=== PATIENT | female | born 1945 | race Caucasian/White ===

== ENCOUNTER 2024-10-04 09:38 | Inpatient (IN) | payer MEDICARE, OTHER ==
[~2024-10-04] VITALS: Ht 162.6 cm; Wt 58.5 kg
[2024-10-04] MEDS: IV NORMAL SALINE 500 ML BAG IV ONE (10:30)
[2024-10-04] MEDS ORDERED: ERGO500040 PO (10:57)
[2024-10-04] MEDS ORDERED: GEMTESA PO (10:57)
[2024-10-04] MEDS ORDERED: ROSU40TA PO (10:57)
[2024-10-04] MEDS ORDERED: DULA1.5P SQ (10:57)
[2024-10-04] MEDS ORDERED: SERT-440 PO (10:57)
[2024-10-04] MEDS ORDERED: L. A1TAB10 PO (10:57)
[2024-10-04] MEDS ORDERED: GLIP10TA11 PO (10:57)
[2024-10-04] MEDS ORDERED: QUET25TA PO (10:57)
[2024-10-04] MEDS ORDERED: CLOP75TA33 PO (10:57)
[2024-10-04 10:59] LABS: BASOPHILS % (AUTO) 0.2 % (0.0-2.0); EOSINOPHILS # (AUTO) 0.1 K/uL (0.0-0.7); EOSINOPHILS % (AUTO) 0.3 % (0.0-7.0); HEMATOCRIT 36.1 % (31.2-41.9); HEMOGLOBIN 12.2 g/dL (10.9-14.3); LYMPHOCYTES # (AUTO) 17.8 K/uL (0.8-4.8); LYMPHOCYTES % (AUTO) 76.7 % (20.5-51.5); MEAN CORPUSCULAR HEMOGLOBIN 29.2 uug (24.7-32.8); MEAN CORPUSCULAR HGB CONC 34 g/dL (32.3-35.6); MEAN CORPUSCULAR VOLUME 86.3 fL (75.5-95.3); MONOCYTES # (AUTO) 0.6 K/uL (0.1-1.30); MONOCYTES % (AUTO) 2.4 % (0.0-11.0); NEUTROPHILS # (AUTO) 4.7 K/uL (1.8-8.9); NEUTROPHILS % (AUTO) 20.4 % (38.5-71.5); PLATELET COUNT (AUTO) 180 K/uL (179-408); RED BLOOD CELL COUNT(AUTO) 4.19 MIL/uL (3.63-4.92); WHITE BLOOD COUNT (AUTO) 23.2 K/uL (3.8-11.8)
[2024-10-04 11:04] LABS: DIFFERENTIAL COMMENT 1
[2024-10-04 11:11] LABS: CALCIUM 9.1 mg/dL (8.5-10.1); CARBON DIOXIDE 23 mmol/L (21-32); CHLORIDE 108 mmol/L (98-107); CREATININE 0.5 mg/dL (0.6-1.3); GLUCOSE 112 mg/dL (74-106); POTASSIUM 3.7 mmol/L (3.5-5.1); SODIUM SERUM 142 mmol/L (136-145); UREA NITROGEN, BLOOD 14 mg/dL (7-18)
[2024-10-04 11:25] LABS: ALBUMIN 3.7 g/dL (3.4-5.0); BILIRUBIN,DIRECT 0.2 mg/dL (0.0-0.2); BILIRUBIN,TOTAL 0.4 mg/dL (0.2-1.0); TOTAL PROTEIN, SERUM 6.7 g/dL (6.4-8.2)
[2024-10-04] MEDS ORDERED: CEFTRIAXONE 1 G in IV DEXTROSE 5% 50 ML IV ONE (11:30)
[2024-10-04] MEDS ORDERED: SWABABLE VALVE TRANSFER SET EA MC ONE (12:38)
[2024-10-04] MEDS ORDERED: IV NORMAL SALINE 250 ML IV ONE (12:38)
[2024-10-04] MEDS ORDERED: IOHEXOL 350 100 ML INFUS..BTL ONE (12:38)
[2024-10-04 13:08] LABS: LYMPHOCYTES % (MANUAL) 40 % (20-40); MONOCYTES % (MANUAL) 2 % (2-10); NEUTROPHILS % (MANUAL) 22 % (42-75)
[2024-10-04 13:09] LABS: REACTIVE LYMPHOCYTES 36 % (0-0)
[2024-10-04 13:10] LABS: PLATELET ESTIMATE ADEQUATE
[2024-10-04] MEDS ORDERED: ASPIRIN 325 MG TABLET ONE (14:27)
[2024-10-04] MEDS: ASPIRIN 325 MG TABLET PO ONE (14:31)
[2024-10-04] MEDS ORDERED: ONDANSETRON 4 MG/2 ML VIAL IV PRN (17:00)
[2024-10-04] MEDS ORDERED: ACETAMINOPHEN 325 MG TABLET PO PRN (17:00)
[2024-10-04] MEDS ORDERED: DEXTROSE 50% 50 ML DISP.SYRIN IV PRN (17:00)
[2024-10-04] MEDS ORDERED: MAGNESIUM HYDROXIDE 30 ML LIQUID UDC PO PRN (17:00)
[2024-10-04 17:02] VITALS: BP 160/69; TEMP 97.5; O2SAT 98
[2024-10-04] MEDS: glipiZIDE 10 MG TABLET PO SCH (17:20)
[2024-10-04] MEDS ORDERED: Medication Not On Formulary EA (Rosuvastatin Calcium (Crestor) 40 MG) PO SCH (18:00)
[2024-10-04 18:08] VITALS: BP 160/69; TEMP 97.5; O2SAT 96
[2024-10-04 18:26] LABS: CARBON DIOXIDE 22 mmol/L (21-32); CHLORIDE 106 mmol/L (98-107); CREATININE 0.6 mg/dL (0.6-1.3); GLUCOSE 116 mg/dL (74-106); POTASSIUM 4.1 mmol/L (3.5-5.1); SODIUM SERUM 141 mmol/L (136-145); UREA NITROGEN, BLOOD 13 mg/dL (7-18)
[2024-10-04 18:38] LABS: ALANINE AMINOTRANSFERASE 21 U/L (14-59); ALBUMIN 3.8 g/dL (3.4-5.0); ALKALINE PHOSPHATASE 80 U/L (50-136); ASPARTATE AMINOTRANSFERASE 13 U/L (15-37); BILIRUBIN,TOTAL 0.3 mg/dL (0.2-1.0); NT-PRO BNP 258 pg/mL (0-125); TOTAL PROTEIN, SERUM 6.5 g/dL (6.4-8.2)
[2024-10-04 18:39] LABS: THYROID STIMULATING HORMONE 2.634 mIU/mL (0.358-3.740)
[2024-10-04 19:00] VITALS: BP 165/74; TEMP 97.8; O2SAT 97
[2024-10-04 19:01] LABS: *BILIRUBIN,URIN NEGATIVE (NEGATIVE); *BLOOD, URINE NEGATIVE (NEGATIVE); *CLARITY,URINE CLEAR (CLEAR); *COLOR,URINE YELLOW (YELLOW); *KETONES,URINE NEGATIVE (NEGATIVE); *PROTEIN,URINE NEGATIVE (NEGATIVE); *UROBILINOGEN,URINE 0.2 E.U./dl (NORMAL); LEUKOCYTE ESTERASE ,URINE 1+ (NEGATIVE); NITRITE, URINE NEGATIVE (NEGATIVE); UGLUCOSE NEGATIVE (NEGATIVE)
[2024-10-04] MEDS: QUETIAPINE FUMARATE 25 MG TABLET PO SCH (19:30)
[2024-10-04 20:16] LABS: BACTERIA,URINE MODERATE /HPF (NONE SEEN); RBC,URINE 0-3 /HPF (0-3); SQUAMOUS EPITHELIAL CELL,UR FEW /HPF (NONE SEEN)
[2024-10-04 20:17] LABS: URINE AMORPHOUS URATE MODERATE /HPF
[2024-10-04] MEDS: BLOOD SUGAR DIAGNOSTIC 1 EACH STRIP VI SCH (21:18)
[2024-10-05] VITALS: BP 150/66; TEMP 98; O2SAT 95
[2024-10-05] MEDS: IV NS 1000 ML 1,000 ML IV PRN
[2024-10-05 04:00] VITALS: BP 147/78; TEMP 97.9; O2SAT 91
[2024-10-05 06:48] LABS: BASOPHILS % (AUTO) 0.1 % (0.0-2.0); EOSINOPHILS # (AUTO) 0.1 K/uL (0.0-0.7); EOSINOPHILS % (AUTO) 0.3 % (0.0-7.0); HEMATOCRIT 38.8 % (31.2-41.9); HEMOGLOBIN 13.3 g/dL (10.9-14.3); LYMPHOCYTES # (AUTO) 18.2 K/uL (0.8-4.8); LYMPHOCYTES % (AUTO) 77.8 % (20.5-51.5); MEAN CORPUSCULAR HEMOGLOBIN 29.3 uug (24.7-32.8); MEAN CORPUSCULAR HGB CONC 34 g/dL (32.3-35.6); MEAN CORPUSCULAR VOLUME 85.6 fL (75.5-95.3); MONOCYTES # (AUTO) 0.5 K/uL (0.1-1.30); MONOCYTES % (AUTO) 2.3 % (0.0-11.0); NEUTROPHILS # (AUTO) 4.6 K/uL (1.8-8.9); NEUTROPHILS % (AUTO) 19.5 % (38.5-71.5); PLATELET COUNT (AUTO) 190 K/uL (179-408); RED BLOOD CELL COUNT(AUTO) 4.53 MIL/uL (3.63-4.92); RED CELL DISTRIBUTION WIDTH 14.2 % (12.3-17.7); WHITE BLOOD COUNT (AUTO) 23.3 K/uL (3.8-11.8)
[2024-10-05 06:55] LABS: DIFFERENTIAL COMMENT 1
[2024-10-05 07:01] LABS: CALCIUM 9.3 mg/dL (8.5-10.1); CARBON DIOXIDE 24 mmol/L (21-32); CHLORIDE 107 mmol/L (98-107); CHOLESTEROL 144 mg/dL (<200); CREATININE 0.7 mg/dL (0.6-1.3); GLUCOSE 109 mg/dL (74-106); HDL CHOLESTEROL 51 mg/dL (40-60); MAGNESIUM 2.2 mg/dL (1.8-2.4); PHOSPHOROUS 3.8 mg/dL (2.5-4.9); SODIUM SERUM 141 mmol/L (136-145); TRIGLYCERIDES 163 MG/DL (30-150); UREA NITROGEN, BLOOD 11 mg/dL (7-18)
[2024-10-05 07:42] VITALS: BP 153/36; TEMP 98.4; O2SAT 98
[2024-10-05] MEDS: CLOPIDOGREL 75 MG TABLET PO SCH (08:38)
[2024-10-05] MEDS: ASPIRIN 81 MG TAB.CHEW PO SCH (08:38)
[2024-10-05] MEDS: ACIDOPHILUS/BULGARICUS CHEW TAB PO SCH (08:38)
[2024-10-05] MEDS ORDERED: [UNRECOGNIZED DRUG - OTHER] PO SCH (09:00)
[2024-10-05] MEDS ORDERED: LACTOBACILLUS BULGARICUS PO SCH (09:00)
[2024-10-05] MEDS ORDERED: LACTOBACILLUS ACIDOPHILUS PO SCH (09:00)
[2024-10-05] MEDS ORDERED: GEMTESA 75 MG PO SCH (09:00)
[2024-10-05 11:21] VITALS: BP 154/70; TEMP 98.4; O2SAT 98
[2024-10-05] MEDS: CEFTRIAXONE 1 G in IV DEXTROSE 5% 50 ML IV SCH (11:36)
[2024-10-05] MEDS: SERTRALINE HCL 100 MG TABLET PO SCH (11:39)
[2024-10-05] MEDS: INSULIN REGULAR, HUMAN 1000 UNIT/10 ML VIAL SQ PRN (11:42)
[2024-10-05 15:04] VITALS: BP 164/79; TEMP 98.6; O2SAT 97
[2024-10-05 19:40] VITALS: BP 151/79; TEMP 97.4; O2SAT 95
[2024-10-05] MEDS: ATORVASTATIN 40 MG TABLET PO SCH (20:27)
[2024-10-06 00:30] VITALS: BP 175/91; TEMP 97.8; O2SAT 96
[2024-10-06 05:00] VITALS: BP 154/82; TEMP 97.5; O2SAT 97
[2024-10-06 06:45] LABS: BASOPHILS % (AUTO) 0.1 % (0.0-2.0); EOSINOPHILS # (AUTO) 0.1 K/uL (0.0-0.7); EOSINOPHILS % (AUTO) 0.5 % (0.0-7.0); HEMATOCRIT 39.9 % (31.2-41.9); HEMOGLOBIN 13.7 g/dL (10.9-14.3); LYMPHOCYTES # (AUTO) 17.2 K/uL (0.8-4.8); LYMPHOCYTES % (AUTO) 73.1 % (20.5-51.5); MEAN CORPUSCULAR HEMOGLOBIN 29.4 uug (24.7-32.8); MEAN CORPUSCULAR HGB CONC 34 g/dL (32.3-35.6); MEAN CORPUSCULAR VOLUME 85.7 fL (75.5-95.3); MONOCYTES # (AUTO) 0.7 K/uL (0.1-1.30); MONOCYTES % (AUTO) 3.1 % (0.0-11.0); NEUTROPHILS # (AUTO) 5.5 K/uL (1.8-8.9); NEUTROPHILS % (AUTO) 23.2 % (38.5-71.5); PLATELET COUNT (AUTO) 193 K/uL (179-408); RED BLOOD CELL COUNT(AUTO) 4.66 MIL/uL (3.63-4.92); RED CELL DISTRIBUTION WIDTH 14.3 % (12.3-17.7); WHITE BLOOD COUNT (AUTO) 23.5 K/uL (3.8-11.8)
[2024-10-06 06:58] LABS: CALCIUM 9.3 mg/dL (8.5-10.1); CARBON DIOXIDE 25 mmol/L (21-32); CHLORIDE 106 mmol/L (98-107); CREATININE 0.6 mg/dL (0.6-1.3); GLUCOSE 130 mg/dL (74-106); PHOSPHOROUS 3.3 mg/dL (2.5-4.9); POTASSIUM 3.9 mmol/L (3.5-5.1); SODIUM SERUM 142 mmol/L (136-145); UREA NITROGEN, BLOOD 9 mg/dL (7-18)
[2024-10-06 07:06] LABS: DIFFERENTIAL COMMENT 1
[2024-10-06 08:00] VITALS: BP 120/78; TEMP 97.7; O2SAT 97
[2024-10-06 08:48] LABS: EOSINOPHILS % (MANUAL) 1 % (0-8); LYMPHOCYTES % (MANUAL) 25 % (20-40); MONOCYTES % (MANUAL) 5 % (2-10); NEUTROPHILS % (MANUAL) 24 % (42-75); REACTIVE LYMPHOCYTES 45 % (0-0)
[2024-10-06 08:49] LABS: PLATELET ESTIMATE ADEQUATE; SMUDGE CELLS 1+
[2024-10-06] MEDS: ERGOCALCIFEROL 50,000 UNIT CAPSULE PO SCH (09:04)
[2024-10-06 11:59] VITALS: BP 145/67; TEMP 97.6; O2SAT 97
[2024-10-06 16:26] VITALS: BP 172/78; TEMP 97.4; O2SAT 97
[2024-10-06 20:00] VITALS: BP 150/81; TEMP 97.4; O2SAT 95
[2024-10-06] MEDS: ATORVASTATIN 40 MG TABLET PO SCH (20:51)
[2024-10-07 06:00] VITALS: BP 135/75; TEMP 97.4; O2SAT 95
[2024-10-07 06:54] LABS: BASOPHILS # (AUTO) 0.1 K/UL (0.0-0.2); BASOPHILS % (AUTO) 0.2 % (0.0-2.0); EOSINOPHILS # (AUTO) 0.2 K/uL (0.0-0.7); EOSINOPHILS % (AUTO) 0.7 % (0.0-7.0); HEMATOCRIT 36.9 % (31.2-41.9); HEMOGLOBIN 12.8 g/dL (10.9-14.3); LYMPHOCYTES # (AUTO) 17.9 K/uL (0.8-4.8); LYMPHOCYTES % (AUTO) 71.5 % (20.5-51.5); MEAN CORPUSCULAR HEMOGLOBIN 29.7 uug (24.7-32.8); MEAN CORPUSCULAR HGB CONC 35 g/dL (32.3-35.6); MEAN CORPUSCULAR VOLUME 85.9 fL (75.5-95.3); MONOCYTES % (AUTO) 3.9 % (0.0-11.0); NEUTROPHILS # (AUTO) 5.9 K/uL (1.8-8.9); NEUTROPHILS % (AUTO) 23.7 % (38.5-71.5); PLATELET COUNT (AUTO) 194 K/uL (179-408); RED CELL DISTRIBUTION WIDTH 14.3 % (12.3-17.7)
[2024-10-07 07:02] LABS: CALCIUM 9.1 mg/dL (8.5-10.1); CARBON DIOXIDE 24 mmol/L (21-32); CHLORIDE 108 mmol/L (98-107); CREATININE 0.6 mg/dL (0.6-1.3); GLUCOSE 133 mg/dL (74-106); PHOSPHOROUS 4.2 mg/dL (2.5-4.9); POTASSIUM 3.7 mmol/L (3.5-5.1); SODIUM SERUM 141 mmol/L (136-145); UREA NITROGEN, BLOOD 14 mg/dL (7-18)
[2024-10-07 07:12] LABS: DIFFERENTIAL COMMENT 1
[2024-10-07] MEDS ORDERED: ASPI81TA31 PO (11:13)
[2024-10-07] MEDS ORDERED: CEFD300C3 PO (11:13)
[2024-10-07 12:00] VITALS: BP 137/65; TEMP 97.6; O2SAT 96
[2024-10-07 14:33] LABS: ANISOCYTOSIS 1+; BAND % (MANUAL) 2 % (0-10); EOSINOPHILS % (MANUAL) 2 % (0-8); LYMPHOCYTES % (MANUAL) 22 % (20-40); MONOCYTES % (MANUAL) 5 % (2-10); NEUTROPHILS % (MANUAL) 24 % (42-75); PLATELET ESTIMATE ADEQUATE
[2024-10-07 16:00] VITALS: BP 131/66; TEMP 97.6; O2SAT 97
[2024-10-07 20:00] VITALS: BP 137/61; TEMP 98; O2SAT 97
[2024-10-08 05:51] VITALS: BP 139/97; TEMP 97.6; O2SAT 98
[2024-10-08 11:35] VITALS: BP 146/65; TEMP 97.3; O2SAT 99
[2024-10-08 15:50] VITALS: BP 152/65; TEMP 98; O2SAT 96
[2024-10-08 20:00] VITALS: BP 144/70; TEMP 98.6; O2SAT 98
[2024-10-09 05:56] VITALS: BP 168/67; TEMP 98.3; O2SAT 96
[2024-10-09 11:40] VITALS: BP 141/57; TEMP 97.9; O2SAT 97
[2024-10-09 15:21] VITALS: BP 142/72; TEMP 98.4; O2SAT 97
[2024-10-09 19:00] VITALS: BP 158/67; TEMP 98.6; O2SAT 94
[2024-10-10 06:00] VITALS: BP 170/73; TEMP 98.6; O2SAT 94
[2024-10-10] MEDS: CLONIDINE HCL 0.1 MG TABLET PO PRN (06:21)
[2024-10-10 09:17] VITALS: BP 148/66
[2024-10-10 11:01] VITALS: BP 146/60; TEMP 98.4; O2SAT 95
[2024-10-10 11:58] LABS: BASOPHILS # (AUTO) 0.1 K/UL (0.0-0.2); BASOPHILS % (AUTO) 0.2 % (0.0-2.0); EOSINOPHILS # (AUTO) 0.1 K/uL (0.0-0.7); EOSINOPHILS % (AUTO) 0.4 % (0.0-7.0); HEMOGLOBIN 11.1 g/dL (10.9-14.3); LYMPHOCYTES # (AUTO) 14.1 K/uL (0.8-4.8); LYMPHOCYTES % (AUTO) 63.9 % (20.5-51.5); MEAN CORPUSCULAR HEMOGLOBIN 29.1 uug (24.7-32.8); MEAN CORPUSCULAR HGB CONC 34 g/dL (32.3-35.6); MEAN CORPUSCULAR VOLUME 86.6 fL (75.5-95.3); MONOCYTES # (AUTO) 0.6 K/uL (0.1-1.30); MONOCYTES % (AUTO) 2.9 % (0.0-11.0); NEUTROPHILS # (AUTO) 7.2 K/uL (1.8-8.9); NEUTROPHILS % (AUTO) 32.6 % (38.5-71.5); PLATELET COUNT (AUTO) 187 K/uL (179-408); RED BLOOD CELL COUNT(AUTO) 3.82 MIL/uL (3.63-4.92); RED CELL DISTRIBUTION WIDTH 14.4 % (12.3-17.7); WHITE BLOOD COUNT (AUTO) 22.1 K/uL (3.8-11.8)
[2024-10-10 12:01] LABS: DIFFERENTIAL COMMENT 1
[2024-10-10 12:06] LABS: CARBON DIOXIDE 26 mmol/L (21-32); CHLORIDE 106 mmol/L (98-107); CREATININE 0.5 mg/dL (0.6-1.3); GLUCOSE 160 mg/dL (74-106); MAGNESIUM 2.1 mg/dL (1.8-2.4); POTASSIUM 3.9 mmol/L (3.5-5.1); SODIUM SERUM 137 mmol/L (136-145); UREA NITROGEN, BLOOD 15 mg/dL (7-18)
[2024-10-10] MEDS: NITROFURANTOIN/NITROFURAN MAC 100 MG CAPSULE PO SCH (14:09)
[2024-10-10] MEDS: CEphaleXIN 500 MG CAPSULE PO SCH (14:09)
[2024-10-10 15:07] VITALS: BP_DIAS 67; TEMP 97.6; O2SAT 97
[2024-10-10 15:11] VITALS: BP 128/67; TEMP 97.6; O2SAT 97
[2024-10-10] MEDS: GLUCERNA SHAKE 237 ML CAN PO SCH (16:34)
[2024-10-10 19:00] VITALS: BP 136/71; TEMP 98.5; O2SAT 95
[2024-10-11 06:00] VITALS: BP 136/60; TEMP 98.3; O2SAT 95
[2024-10-11 07:50] LABS: BASOPHILS % (AUTO) 0.1 % (0.0-2.0); EOSINOPHILS # (AUTO) 0.1 K/uL (0.0-0.7); EOSINOPHILS % (AUTO) 0.5 % (0.0-7.0); HEMATOCRIT 31.9 % (31.2-41.9); LYMPHOCYTES # (AUTO) 10.8 K/uL (0.8-4.8); LYMPHOCYTES % (AUTO) 51.4 % (20.5-51.5); MEAN CORPUSCULAR HEMOGLOBIN 29.4 uug (24.7-32.8); MEAN CORPUSCULAR HGB CONC 34 g/dL (32.3-35.6); MEAN CORPUSCULAR VOLUME 85.6 fL (75.5-95.3); MONOCYTES # (AUTO) 0.8 K/uL (0.1-1.30); MONOCYTES % (AUTO) 3.7 % (0.0-11.0); NEUTROPHILS # (AUTO) 9.3 K/uL (1.8-8.9); NEUTROPHILS % (AUTO) 44.3 % (38.5-71.5); PLATELET COUNT (AUTO) 175 K/uL (179-408); RED BLOOD CELL COUNT(AUTO) 3.73 MIL/uL (3.63-4.92); RED CELL DISTRIBUTION WIDTH 14.4 % (12.3-17.7)
[2024-10-11 07:59] LABS: DIFFERENTIAL COMMENT 1
[2024-10-11 08:12] LABS: CALCIUM 8.5 mg/dL (8.5-10.1); CARBON DIOXIDE 25 mmol/L (21-32); CHLORIDE 107 mmol/L (98-107); CREATININE 0.5 mg/dL (0.6-1.3); GLUCOSE 149 mg/dL (74-106); MAGNESIUM 1.2 mg/dL (1.8-2.4); PHOSPHOROUS 3.9 mg/dL (2.5-4.9); POTASSIUM 3.3 mmol/L (3.5-5.1); SODIUM SERUM 142 mmol/L (136-145); UREA NITROGEN, BLOOD 18 mg/dL (7-18)
[2024-10-11 10:58] LABS: LYMPHOCYTES % (MANUAL) 42 % (20-40); MONOCYTES % (MANUAL) 5 % (2-10); NEUTROPHILS % (MANUAL) 46 % (42-75); REACTIVE LYMPHOCYTES 7 % (0-0)
[2024-10-11 10:59] LABS: PLATELET ESTIMATE ADEQUATE
[2024-10-11 11:39] VITALS: BP 138/72; TEMP 99.1; O2SAT 95
[2024-10-11] MEDS: POTASSIUM CHLORIDE 20 MEQ POWDER PACKET PO ONE (12:06)
[2024-10-11] MEDS: MAGNESIUM OXIDE 400 MG TABLET PO SCH (12:06)
[2024-10-11] MEDS ORDERED: CLOP75TA15 PO (13:39)
[2024-10-11] MEDS ORDERED: NITR100C11 PO (13:39)
[2024-10-11] MEDS ORDERED: ASPI81TA31 PO (13:39)
[2024-10-11] MEDS ORDERED: ATOR80TA PO (13:39)
== END 2024-10-11 17:40 | disposition home health service (06) | DRG 65 ==
LOC: ER 09:38 → TELE3 16:24 → MEDSURG3 10-06 10:45
PROVIDERS: ADMIT Nurse Practitioner Acute Care; ATTEND Nurse Practitioner Acute Care
DX: I63.89 Other cerebral infarction (principal); C91.10 Chronic lymphocytic leukemia of B-cell type not having achieved remission; G81.94 Hemiplegia, unspecified affecting left nondominant side; N39.0 Urinary tract infection, site not specified; D68.59 Other primary thrombophilia; R29.810 Facial weakness; Z75.1 Person awaiting admission to adequate facility elsewhere; B96.89 Other specified bacterial agents as the cause of diseases classified elsewhere; R29.705 NIHSS score 5; Z86.73 Personal history of transient ischemic attack (TIA), and cerebral infarction without residual deficits; Z74.09 Other reduced mobility; E11.9 Type 2 diabetes mellitus without complications; I10 Essential (primary) hypertension; Z79.02 Long term (current) use of antithrombotics/antiplatelets; Z79.84 Long term (current) use of oral hypoglycemic drugs; Z79.899 Other long term (current) drug therapy; Z79.85 Long-term (current) use of injectable non-insulin antidiabetic drugs; F01.50 Vascular dementia, unspecified severity, without behavioral disturbance, psychotic disturbance, mood disturbance, and anxiety; E78.5 Hyperlipidemia, unspecified
CPT/HCPCS: 36415; 70030-TC; 70450; 70496; 70551; 71045; 83605; 83735; 84100; 84443; 84484; 85025; 85651; 85730; 87040; 93307; A4606; A4663; C1758; G0378; J0696; J1815; J7040; Q9967